=== PATIENT | male | born 1950 | race African-American/Black ===

== ENCOUNTER 2020-10-08 17:12 | Emergency (ER) | payer MEDICARE, OTHER ==
[~2020-10-08] VITALS: Ht 165.1 cm; Wt 72.7 kg
[2020-10-08 19:35] VITALS: BP 138/74
== END 2020-10-08 19:37 | disposition home or self-care (01) ==
LOC: EMS 17:12
DX: S00.83XA Contusion of other part of head, initial encounter (principal); I25.10 Atherosclerotic heart disease of native coronary artery without angina pectoris; E78.00 Pure hypercholesterolemia, unspecified; I10 Essential (primary) hypertension; W01.0XXA Fall on same level from slipping, tripping and stumbling without subsequent striking against object, initial encounter; Y93.89 Activity, other specified; Y92.89 Other specified places as the place of occurrence of the external cause; Y99.8 Other external cause status
CPT/HCPCS: 70450